=== PATIENT | male | born 1930 | race Caucasian/White ===

== ENCOUNTER 2018-09-24 09:09 | Observation (INO) ==
[2018-09-24 10:19] LABS: Basophils % 0.5 %; Eosinophils # 0.1 K/mcL (0.0-0.6); Eosinophils % 2.8 %; Hematocrit 41.4 % (37.5-50.1); Hemoglobin 13.1 g/dL (12.9-16.9); Immature Granulocytes % 0.9 % (0-4); Lymphocytes # 0.6 K/mcL (0.6-4.6); Mean Corpuscular HGB Conc 31.6 g/dL (31.6-35.5); Mean Corpuscular Hemoglobin 30.7 pg (28.0-33.3); Mean Platelet Volume 10.4 fL (9.4-12.4); Monocytes # 0.4 K/mcL (0.0-1.3); Monocytes % 8.4 %; Neutrophils # 3.1 K/mcL (1.6-8.9); Platelet Count 106 K/mcL (140-400); Red Blood Count 4.27 M/mcL (4.19-5.50); Red Cell Distribution Width 13.4 % (11.5-14.5); Segmented Neutrophils % 73.4 %; White Blood Count 4.3 K/mcL (4.3-11.1)
[2018-09-24 10:38] LABS: BUN/Creatinine Ratio 24 (6-26); Blood Urea Nitrogen 20 mg/dL (8-23); Calcium 9.4 mg/dL (8.6-10.3); Carbon Dioxide 30 mEq/L (23-29); Chloride 99 mEq/L (98-107); Glucose 97 mg/dL (70-105); Lipase 40 Units/L (11-82); Magnesium 2.3 mg/dL (1.6-2.6); Osmolality,Calculated 281 (280-300); Potassium 4.2 mEq/L (3.5-5.1); Sodium 134 mEq/L (136-145); eGFR For African Americans > 60 (> 60); eGFR For Non-African Americans > 60 (> 60)
[2018-09-24 10:40] LABS: Albumin 3.8 g/dL (3.5-5.7); Albumin/Globulin Ratio 1.4 (1.1-2.2); Bilirubin,Direct 0.2 mg/dL (0.0-0.2); Bilirubin,Indirect 0.5 mg/dL (0.0-1.2); Bilirubin,Total 0.7 mg/dL (0.3-1.0); Globulin 2.8 g/dL (2.4-3.5); Total Protein 6.6 g/dL (6.4-8.9); Troponin I 0.03 ng/mL (< 0.04)
[2018-09-24 10:54] LABS: Thyroid Stimulating Hormone 3.901 mcIU/mL (0.340-5.600)
[2018-09-24 11:56] LABS: Bilirubin,Urine Negative (Negative); Blood,Urine Negative (Negative); Clarity,Urine Clear (Clear); Color,Urine Yellow (Yellow); Glucose,Urine (UA) Normal (Normal); Ketones,Urine Negative (Negative); Leukocyte Esterase,Urine Negative (Negative); Nitrite,Urine Negative (Negative); PH,Urine 6.5 pH Units (5.0-8.0); Protein,Urine Negative (Neg-Trace); Specific Gravity,Urine 1.019 (1.010-1.025); Urobilinogen,Urine Normal (Normal)
[2018-09-24] MEDS ORDERED: Naloxone 0.4 MG/ML INJ IVP PRN (14:00)
[2018-09-24] MEDS ORDERED: Ondansetron ODT 4 MG TAB.RAPDIS SL PRN (14:00)
[2018-09-24] MEDS ORDERED: MOM Conc 10 ML UD.LIQ PO PRN (14:00)
[2018-09-24 15:17] LABS: VBG HCO3 30 mEq/L (21-27); VBG PCO2 63 mmHg (41-51); VBG PH 7.29 pH Units (7.32-7.42); VBG PO2 30 mmHg (25-50)
[2018-09-24] MEDS: Azithromycin 500 MG in D5% in Water 250 ML IVPB SCH (16:43)
[2018-09-24] MEDS: cefTRIAXone 1,000 MG in Water for inj. (sterile) 10 ML IVP SCH (18:03)
[2018-09-24] MEDS: Furosemide 40 MG TABLET PO SCH (18:03)
[2018-09-24] MEDS: Budesonide/Formoterol 80/4.5 1 PUFF INH IH SCH (19:55)
[2018-09-24] MEDS: Mirtazapine 15 MG TABLET PO SCH (20:19)
[2018-09-24] MEDS: *HR* LORazepam 0.5 MG TABLET PO SCH (20:19)
[2018-09-24] MEDS: Sennosides 8.6 MG TABLET PO SCH (20:20)
[2018-09-24] MEDS ORDERED: IPRATROPIUM BROMIDE NS SCH (21:00)
[2018-09-25 01:49] LABS: Amphetamine Screen,Urine Negative ng/mL (Cutoff=1000); Barbiturate Screen,Urine Negative ng/mL (Cutoff=200); Benzodiazepines Screen,Urine Negative ng/mL (Cutoff=200); Cannabinoid Screen,Urine Negative ng/mL (Cutoff = 50); Cocaine Screen,Urine Negative ng/mL (Cutoff= 300); Opiate Screen,Urine Negative ng/mL (Cutoff=300); Phencyclidine Screen,Urine Negative ng/mL (Cutoff=25)
[2018-09-25 05:03] LABS: Basophils % 0.2 %; Eosinophils # 0.1 K/mcL (0.0-0.6); Eosinophils % 2.5 %; Hematocrit 36.5 % (37.5-50.1); Immature Granulocytes % 0.6 % (0-4); Lymphocytes # 0.6 K/mcL (0.6-4.6); Lymphocytes % 10.8 %; Mean Corpuscular HGB Conc 32.9 g/dL (31.6-35.5); Mean Corpuscular Hemoglobin 31.1 pg (28.0-33.3); Mean Corpuscular Volume 94.6 fL (83.0-100.0); Mean Platelet Volume 10.3 fL (9.4-12.4); Monocytes # 0.3 K/mcL (0.0-1.3); Monocytes % 6.4 %; Neutrophils # 4.1 K/mcL (1.6-8.9); Platelet Count 112 K/mcL (140-400); Red Blood Count 3.86 M/mcL (4.19-5.50); Red Cell Distribution Width 13.2 % (11.5-14.5); Segmented Neutrophils % 79.5 %; White Blood Count 5.2 K/mcL (4.3-11.1)
[2018-09-25 05:08] LABS: VBG HCO3 29 mEq/L (21-27); VBG PCO2 41 mmHg (41-51); VBG PH 7.46 pH Units (7.32-7.42); VBG PO2 145 mmHg (25-50)
[2018-09-25 05:30] LABS: BUN/Creatinine Ratio 22 (6-26); Blood Urea Nitrogen 15 mg/dL (8-23); Calcium 8.8 mg/dL (8.6-10.3); Carbon Dioxide 29 mEq/L (23-29); Chloride 104 mEq/L (98-107); Glucose 86 mg/dL (70-105); Osmolality,Calculated 284 (280-300); Potassium 4.1 mEq/L (3.5-5.1); Sodium 137 mEq/L (136-145); eGFR For African Americans > 60 (> 60); eGFR For Non-African Americans > 60 (> 60)
[2018-09-25] MEDS: Budesonide/Formoterol 80/4.5 1 PUFF INH IH SCH ×2 (07:25→19:54)
[2018-09-25] MEDS: cefTRIAXone 1,000 MG in Water for inj. (sterile) 10 ML IVP SCH (08:46)
[2018-09-25] MEDS: *HR* LORazepam 0.5 MG TABLET PO SCH ×2 (08:46→20:55)
[2018-09-25] MEDS: Aspirin 81 MG TAB.CHEW PO SCH (08:46)
[2018-09-25] MEDS: Loratadine 10 MG TABLET PO SCH (08:46)
[2018-09-25] MEDS: Furosemide 40 MG TABLET PO SCH ×2 (08:46→17:15)
[2018-09-25] MEDS: Sennosides 8.6 MG TABLET PO SCH ×2 (08:46→20:55)
[2018-09-25] MEDS: Fluticasone Propionate Nasal 50 MCG/SPRAY BOTTLE NS SCH (09:27)
[2018-09-25 16:43] LABS: ABG Base Excess 5 mEq/L (-2 to 3); ABG HCO3 30 mEq/L (21-27); ABG Oxygen Saturation 96 % (95-98); ABG PCO2 46 mmHg (35-45); ABG PH 7.43 pH Units (7.32-7.45); ABG PO2 79 mmHg (85-104); ABG TCO2 32 mEq/L (20-26)
[2018-09-25] MEDS: Azithromycin 500 MG in D5% in Water 250 ML IVPB SCH (17:15)
[2018-09-25] MEDS: Ampicillin/Sulbactam 1,500 MG in 0.9 % Sodium Chloride Mini Bag 100 ML IVPB SCH (17:15)
[2018-09-25] MEDS: Mirtazapine 15 MG TABLET PO SCH (20:55)
[2018-09-26] MEDS: Ampicillin/Sulbactam 1,500 MG in 0.9 % Sodium Chloride Mini Bag 100 ML IVPB SCH ×4 (00:01→18:43)
[2018-09-26] MEDS: Budesonide/Formoterol 80/4.5 1 PUFF INH IH SCH ×2 (07:54→20:24)
[2018-09-26] MEDS: Furosemide 40 MG TABLET PO SCH ×2 (08:25→17:07)
[2018-09-26] MEDS: Loratadine 10 MG TABLET PO SCH (08:25)
[2018-09-26] MEDS: Aspirin 81 MG TAB.CHEW PO SCH (08:25)
[2018-09-26] MEDS: *HR* LORazepam 0.5 MG TABLET PO SCH ×2 (08:26→19:59)
[2018-09-26] MEDS: Sennosides 8.6 MG TABLET PO SCH ×2 (08:26→19:59)
[2018-09-26] MEDS: Fluticasone Propionate Nasal 50 MCG/SPRAY BOTTLE NS SCH (08:26)
[2018-09-26] MEDS: Azithromycin 500 MG in D5% in Water 250 ML IVPB SCH (17:07)
[2018-09-26] MEDS: Mirtazapine 15 MG TABLET PO SCH (19:59)
[2018-09-27] MEDS: Ampicillin/Sulbactam 1,500 MG in 0.9 % Sodium Chloride Mini Bag 100 ML IVPB SCH ×2 (00:09→06:02)
[2018-09-27 04:20] LABS: Hematocrit 38.9 % (37.5-50.1); Hemoglobin 12.7 g/dL (12.9-16.9); Mean Corpuscular HGB Conc 32.6 g/dL (31.6-35.5); Mean Corpuscular Hemoglobin 30.8 pg (28.0-33.3); Mean Corpuscular Volume 94.4 fL (83.0-100.0); Mean Platelet Volume 10.7 fL (9.4-12.4); Platelet Count 123 K/mcL (140-400); Red Blood Count 4.12 M/mcL (4.19-5.50); Red Cell Distribution Width 13.2 % (11.5-14.5); White Blood Count 5.4 K/mcL (4.3-11.1)
[2018-09-27 04:39] LABS: BUN/Creatinine Ratio 28 (6-26); Blood Urea Nitrogen 22 mg/dL (8-23); Carbon Dioxide 30 mEq/L (23-29); Chloride 100 mEq/L (98-107); Glucose 91 mg/dL (70-105); Osmolality,Calculated 287 (280-300); Sodium 137 mEq/L (136-145); eGFR For African Americans > 60 (> 60); eGFR For Non-African Americans > 60 (> 60)
[2018-09-27] MEDS ORDERED: *HR* LORazepam 0.5 MG TABLET PO PRN (07:24)
[2018-09-27] MEDS: Budesonide/Formoterol 80/4.5 1 PUFF INH IH SCH ×2 (07:46→20:19)
[2018-09-27] MEDS: Aspirin 81 MG TAB.CHEW PO SCH (08:28)
[2018-09-27] MEDS: Sennosides 8.6 MG TABLET PO SCH ×2 (08:29→21:36)
[2018-09-27] MEDS: Furosemide 40 MG TABLET PO SCH ×2 (08:29→17:42)
[2018-09-27] MEDS: Loratadine 10 MG TABLET PO SCH (08:29)
[2018-09-27] MEDS: Fluticasone Propionate Nasal 50 MCG/SPRAY BOTTLE NS SCH (08:35)
[2018-09-27] MEDS ORDERED: cefTRIAXone 1,000 MG in Water for inj. (sterile) 10 ML IVP SCH (09:00)
[2018-09-27 10:04] LABS: ABG Base Excess 6 mEq/L (-2 to 3); ABG HCO3 32 mEq/L (21-27); ABG Oxygen Saturation 97 % (95-98); ABG PCO2 46 mmHg (35-45); ABG PH 7.44 pH Units (7.32-7.45); ABG PO2 86 mmHg (85-104); ABG TCO2 33 mEq/L (20-26)
[2018-09-27] MEDS: Mirtazapine 15 MG TABLET PO SCH (21:30)
[2018-09-28 06:42] LABS: Hematocrit 39.9 % (37.5-50.1); Hemoglobin 12.9 g/dL (12.9-16.9); Mean Corpuscular HGB Conc 32.3 g/dL (31.6-35.5); Mean Corpuscular Hemoglobin 30.9 pg (28.0-33.3); Mean Corpuscular Volume 95.7 fL (83.0-100.0); Mean Platelet Volume 10.5 fL (9.4-12.4); Platelet Count 127 K/mcL (140-400); Red Blood Count 4.17 M/mcL (4.19-5.50); Red Cell Distribution Width 13.1 % (11.5-14.5); White Blood Count 4.9 K/mcL (4.3-11.1)
[2018-09-28 07:06] LABS: Alanine Aminotransferase 18 Units/L (7-52); Albumin 3.5 g/dL (3.5-5.7); Albumin/Globulin Ratio 1.3 (1.1-2.2); Alkaline Phosphatase 160 Units/L (34-104); Aspartate Amino Transferase 22 Units/L (13-39); BUN/Creatinine Ratio 26 (6-26); Bilirubin,Total 0.8 mg/dL (0.3-1.0); Blood Urea Nitrogen 20 mg/dL (8-23); Calcium 9.4 mg/dL (8.6-10.3); Carbon Dioxide 32 mEq/L (23-29); Chloride 99 mEq/L (98-107); Globulin 2.7 g/dL (2.4-3.5); Glucose 92 mg/dL (70-105); Magnesium 2.3 mg/dL (1.6-2.6); Osmolality,Calculated 290 (280-300); Phosphorous 3.6 mg/dL (2.7-4.5); Potassium 3.6 mEq/L (3.5-5.1); Sodium 139 mEq/L (136-145); Total Protein 6.2 g/dL (6.4-8.9); eGFR For African Americans > 60 (> 60); eGFR For Non-African Americans > 60 (> 60)
[2018-09-28 07:30] VITALS: BP 161/73
[2018-09-28] MEDS: Budesonide/Formoterol 80/4.5 1 PUFF INH IH SCH (07:59)
[2018-09-28] MEDS: Sennosides 8.6 MG TABLET PO SCH (09:17)
[2018-09-28] MEDS: Furosemide 40 MG TABLET PO SCH (09:18)
[2018-09-28] MEDS: Loratadine 10 MG TABLET PO SCH (09:18)
[2018-09-28] MEDS: Aspirin 81 MG TAB.CHEW PO SCH (09:18)
[2018-09-28] MEDS: Fluticasone Propionate Nasal 50 MCG/SPRAY BOTTLE NS SCH (09:20)
[2018-09-28 09:45] LABS: Serine Protease-3 Antibody 0 AU/mL (0-19)
[2018-09-28 09:46] LABS: ANA IgG by ELISA NONE DETECTED (None Detected)
== END 2018-09-28 12:21 | disposition home or self-care (01) ==
LOC: 3ANU 09:09 → EMEROOARM 09:09 → SUATTDRO 13:07 → 3ANU 14:39 → 3NENU 09-25 15:22
PROVIDERS: ADMIT Internal Medicine; ATTEND Internal Medicine

== ENCOUNTER 2021-01-04 18:41 | Inpatient (IN) ==
[2021-01-04] MEDS ORDERED: Ondansetron 4 MG/2 ML VIAL IVP ONE (20:18)
[2021-01-04] MEDS ORDERED: 0.9 % Sodium Chloride 1,000 ML IV ONE (20:21)
[2021-01-04 20:52] LABS: Basophils % 0.2 %; Eosinophils % 0.3 %; Immature Granulocytes % 0.3 % (0-4); Mean Corpuscular Volume 89.7 fL (83.0-100.0)
[2021-01-04 20:54] LABS: Hematocrit 43.4 % (37.5-50.1); Hemoglobin 14.1 g/dL (12.9-16.9); Immature Platelets 6.5 % (1.1-6.1); Lymphocytes # 0.4 K/mcL (0.6-4.6); Lymphocytes % 6.3 %; Mean Corpuscular HGB Conc 32.5 g/dL (31.6-35.5); Mean Corpuscular Hemoglobin 29.1 pg (28.0-33.3); Mean Platelet Volume 11.1 fL (9.4-12.4); Monocytes # 0.5 K/mcL (0.0-1.3); Monocytes % 7.7 %; Neutrophils # 5.5 K/mcL (1.6-8.9); Platelet Count 108 K/mcL (140-400); Red Blood Count 4.84 M/mcL (4.19-5.50); Red Cell Distribution Width 14.3 % (11.5-14.5); Segmented Neutrophils % 85.2 %; White Blood Count 6.5 K/mcL (4.3-11.1)
[2021-01-04 21:00] LABS: INR 2.7; Prothrombin Time 30.1 Seconds (9.4-12.1)
[2021-01-04 21:13] LABS: Alanine Aminotransferase 25 Units/L (7-52); Albumin 3.6 g/dL (3.5-5.7); Albumin/Globulin Ratio 1.2 (1.1-2.2); Alkaline Phosphatase 203 Units/L (34-104); Amylase 29 Units/L (29-103); Aspartate Amino Transferase 42 Units/L (13-39); BUN/Creatinine Ratio 22 (6-26); Bilirubin,Direct 0.4 mg/dL (0.0-0.2); Bilirubin,Total 1.4 mg/dL (0.3-1.0); Blood Urea Nitrogen 20 mg/dL (8-23); Calcium 9.4 mg/dL (8.6-10.3); Carbon Dioxide 35 mEq/L (23-29); Chloride 93 mEq/L (98-107); Globulin 2.9 g/dL (2.4-3.5); Glucose 101 mg/dL (70-105); Lipase 29 Units/L (11-82); Osmolality,Calculated 279 (280-300); Potassium 4.2 mEq/L (3.5-5.1); Sodium 133 mEq/L (136-145); Total Protein 6.5 g/dL (6.4-8.9); eGFR For African Americans > 60 (> 60); eGFR For Non-African Americans > 60 (> 60)
[2021-01-04] MEDS ORDERED: Ondansetron 4 MG/2 ML VIAL IVP PRN (22:55)
[2021-01-04] MEDS ORDERED: Naloxone 0.4 MG/ML INJ IVP PRN (22:55)
[2021-01-04] MEDS ORDERED: Isovue-370 500 ML BOTTLE IVP ONE (22:58)
[2021-01-05] MEDS ORDERED: Ipratropium/Albuterol Neb 3 ML IH PRN
[2021-01-05 00:24] LABS: Adenovirus Not Detected (Not Detect); Bordetella Pertussis Not Detected (Not Detect); Chlamydophila pneumoniae Not Detected (Not Detect); Coronavirus 229E Not Detected (Not Detect); Coronavirus HKU1 Not Detected (Not Detect); Coronavirus NL63 Not Detected (Not Detect); Coronavirus OC43 Not Detected (Not Detect); Human Metapneumovirus Not Detected (Not Detect); Human Rhinovirus/Enterovirus Not Detected (Not Detect); Influenza A Subtype 2009 H1 Not Detected (Not Detect); Influenza B Not Detected (Not Detect); Mycoplasma pneumoniae Not Detected (Not Detect); Parainfluenza Virus 1 Not Detected (Not Detect); Parainfluenza Virus 2 Not Detected (Not Detect); Parainfluenza Virus 3 Not Detected (Not Detect); Parainfluenza Virus 4 Not Detected (Not Detect); Respiratory Syncytial Virus Not Detected (Not Detect); SARS-CoV-2 Not Detected (Not Detect)
[2021-01-05] MEDS ORDERED: Furosemide 40 MG/4 ML VIAL IVP ONE (01:48)
[2021-01-05] MEDS: Melatonin 3 MG TABLET PO SCH ×2 (02:34→21:28)
[2021-01-05 03:26] LABS: INR 2.2; Prothrombin Time 24.7 Seconds (9.4-12.1)
[2021-01-05 03:27] LABS: Basophils % 0.1 %; Eosinophils % 0.1 %; Hematocrit 44.9 % (37.5-50.1); Hemoglobin 14.5 g/dL (12.9-16.9); Immature Granulocytes % 0.6 % (0-4); Immature Platelets 6.2 % (1.1-6.1); Lymphocytes # 0.4 K/mcL (0.6-4.6); Lymphocytes % 5.9 %; Mean Corpuscular HGB Conc 32.3 g/dL (31.6-35.5); Mean Corpuscular Hemoglobin 29.1 pg (28.0-33.3); Mean Platelet Volume 11.3 fL (9.4-12.4); Monocytes # 0.3 K/mcL (0.0-1.3); Monocytes % 4.6 %; Red Blood Count 4.99 M/mcL (4.19-5.50); Red Cell Distribution Width 14.5 % (11.5-14.5); Segmented Neutrophils % 88.7 %; White Blood Count 6.8 K/mcL (4.3-11.1)
[2021-01-05 03:45] LABS: BUN/Creatinine Ratio 22 (6-26); Blood Urea Nitrogen 17 mg/dL (8-23); Carbon Dioxide 27 mEq/L (23-29); Chloride 96 mEq/L (98-107); Glucose 117 mg/dL (70-105); Osmolality,Calculated 277 (280-300); Potassium 3.9 mEq/L (3.5-5.1); Sodium 132 mEq/L (136-145); eGFR For African Americans > 60 (> 60); eGFR For Non-African Americans > 60 (> 60)
[2021-01-05 03:55] LABS: Platelet Count 94 K/mcL (140-400)
[2021-01-05 03:56] LABS: Platelet Estimate Decreased (Normal)
[2021-01-05 05:00] LABS: Thyroid Stimulating Hormone 3.438 mcIU/mL (0.340-5.600)
[2021-01-05] MEDS: Aspirin 81 MG TAB.CHEW PO SCH (08:25)
[2021-01-05] MEDS ORDERED: Azithromycin 500 MG in 0.9 % Sodium Chloride 250 ML IVPB SCH (09:00)
[2021-01-05] MEDS ORDERED: cefTRIAXone 1,000 MG in 0.9 % Sodium Chloride Mini Bag 100 ML IVPB SCH (09:00)
[2021-01-05] MEDS: Furosemide 40 MG/4 ML VIAL IVP SCH (13:46)
[2021-01-05 13:55] LABS: Bilirubin,Urine Negative (Negative); Blood,Urine Moderate (Negative); Clarity,Urine Clear (Clear); Color,Urine Yellow (Yellow); Glucose,Urine (UA) Normal (Normal); Hyaline Casts,Urine Few per lpf (None Seen); Ketones,Urine Negative (Negative); Leukocyte Esterase,Urine Negative (Negative); Mucus,Urine Few per lpf (None-Few); Nitrite,Urine Negative (Negative); Protein,Urine Trace mg/dL (Neg-Trace); RBC,Urine 15-30 per hpf (0-3); Specific Gravity,Urine 1.028 (1.010-1.025); Urobilinogen,Urine Normal (Normal)
[2021-01-05] MEDS ORDERED: *HR* Heparin 5,000 UNIT/ML VIAL IVP PRN ×2 (16:08)
[2021-01-05] MEDS ORDERED: *HR* Heparin 5,000 UNIT/ML VIAL IVP ONE (16:08)
[2021-01-05] MEDS ORDERED: Heparin 25,000UNIT/250ML 1/2NS 25,000 UNIT/250 ML IV.SOLN IVC SCH (16:15)
[2021-01-05 17:50] LABS: Hemoglobin 14.1 g/dL (12.9-16.9); Mean Platelet Volume 10.9 fL (9.4-12.4); Red Cell Distribution Width 14.4 % (11.5-14.5)
[2021-01-05 17:51] LABS: Immature Platelets 5.3 % (1.1-6.1); Mean Corpuscular Hemoglobin 28.8 pg (28.0-33.3); Red Blood Count 4.89 M/mcL (4.19-5.50); White Blood Count 7.4 K/mcL (4.3-11.1)
[2021-01-05 18:01] LABS: INR 2.1; Prothrombin Time 22.9 Seconds (9.4-12.1)
[2021-01-05 18:25] LABS: Heparin anti-factor XA UFH > 2.00 IU/mL (0.30-0.70)
[2021-01-05 18:56] LABS: Activated Partial Thrombo Time 38.4 Seconds (26.0-36.0)
[2021-01-06 01:22] LABS: BUN/Creatinine Ratio 24 (6-26); Blood Urea Nitrogen 22 mg/dL (8-23); Calcium 9.1 mg/dL (8.6-10.3); Carbon Dioxide 27 mEq/L (23-29); Chloride 98 mEq/L (98-107); Glucose 107 mg/dL (70-105); Osmolality,Calculated 288 (280-300); Potassium 3.9 mEq/L (3.5-5.1); Sodium 137 mEq/L (136-145); eGFR For African Americans > 60 (> 60); eGFR For Non-African Americans > 60 (> 60)
[2021-01-06 02:42] LABS: Activated Partial Thrombo Time > 360.0 Seconds (26.0-36.0)
[2021-01-06 04:09] LABS: Basophils % 0.3 %; Eosinophils % 0.1 %; Hematocrit 42.8 % (37.5-50.1); Hemoglobin 13.7 g/dL (12.9-16.9); Immature Granulocytes % 0.5 % (0-4); Lymphocytes # 0.4 K/mcL (0.6-4.6); Lymphocytes % 5.7 %; Mean Corpuscular Hemoglobin 29.2 pg (28.0-33.3); Mean Corpuscular Volume 91.3 fL (83.0-100.0); Mean Platelet Volume 11.1 fL (9.4-12.4); Monocytes # 0.5 K/mcL (0.0-1.3); Monocytes % 7.3 %; Neutrophils # 6.4 K/mcL (1.6-8.9); Platelet Count 120 K/mcL (140-400); Red Blood Count 4.69 M/mcL (4.19-5.50); Red Cell Distribution Width 14.5 % (11.5-14.5); Segmented Neutrophils % 86.1 %; White Blood Count 7.4 K/mcL (4.3-11.1)
[2021-01-06 04:32] LABS: INR 2.2; Prothrombin Time 24.9 Seconds (9.4-12.1)
[2021-01-06] MEDS: Aspirin 81 MG TAB.CHEW PO SCH (08:35)
[2021-01-06] MEDS: Furosemide 40 MG/4 ML VIAL IVP SCH (08:36)
[2021-01-06] MEDS: Melatonin 3 MG TABLET PO SCH (19:48)
[2021-01-07 03:21] LABS: Hematocrit 37.8 % (37.5-50.1); Hemoglobin 12.1 g/dL (12.9-16.9)
[2021-01-07] MEDS: Furosemide 40 MG/4 ML VIAL IVP SCH (07:37)
[2021-01-07] MEDS: Aspirin 81 MG TAB.CHEW PO SCH (07:37)
[2021-01-07 15:29] VITALS: BP 118/79; PULSE 88; TEMP 97.4; O2SAT 97
== END 2021-01-07 17:30 | disposition home health service (06) | DRG 280 ==
LOC: EMEROOARM 18:41 → 3NENU 01-05 00:37 → SUATTDRO 01-05 00:37 → 3NENU 01-05 01:08
PROVIDERS: ADMIT Student in an Organized Health Care Education/Training Program; ATTEND Family Medicine

== ENCOUNTER 2021-05-03 07:24 | Inpatient (IN) ==
[2021-05-03] MEDS ORDERED: Isovue-370 500 ML BOTTLE IVP ONE (07:35)
[2021-05-03 07:55] LABS: Hematocrit 40.3 % (37.5-50.1); Red Cell Distribution Width 14.9 % (11.5-14.5)
[2021-05-03 07:56] LABS: Immature Platelets 5.9 % (1.1-6.1); Mean Corpuscular HGB Conc 32.3 g/dL (31.6-35.5); Mean Corpuscular Hemoglobin 30.2 pg (28.0-33.3); Mean Corpuscular Volume 93.5 fL (83.0-100.0); Mean Platelet Volume 10.3 fL (9.4-12.4); Red Blood Count 4.31 M/mcL (4.19-5.50)
[2021-05-03 08:00] LABS: INR 1.2; Prothrombin Time 13.7 Seconds (9.4-12.1)
[2021-05-03 08:03] LABS: Activated Partial Thrombo Time 35.9 Seconds (26.0-36.0)
[2021-05-03] MEDS ORDERED: Furosemide 40 MG/4 ML VIAL IVP ONE (08:51)
[2021-05-03 09:19] LABS: VBG HCO3 35 mEq/L (21-27); VBG PCO2 70 mmHg (41-51); VBG PH 7.31 pH Units (7.32-7.42); VBG PO2 97 mmHg (25-50)
[2021-05-03] MEDS ORDERED: Ondansetron 4 MG/2 ML VIAL IVP PRN (09:25)
[2021-05-03] MEDS ORDERED: Naloxone 0.4 MG/ML INJ IVP PRN (09:25)
[2021-05-03 10:09] LABS: Alanine Aminotransferase 17 Units/L (7-52); Albumin 3.4 g/dL (3.5-5.7); Albumin/Globulin Ratio 1.1 (1.1-2.2); Alkaline Phosphatase 175 Units/L (34-104); Aspartate Amino Transferase 30 Units/L (13-39); BUN/Creatinine Ratio 19 (6-26); Bilirubin,Direct 0.3 mg/dL (0.0-0.2); Bilirubin,Indirect 0.6 mg/dL (0.0-1.0); Bilirubin,Total 0.9 mg/dL (0.3-1.0); Blood Urea Nitrogen 16 mg/dL (8-23); Calcium 9.2 mg/dL (8.6-10.3); Carbon Dioxide 34 mEq/L (23-29); Chloride 90 mEq/L (98-107); Creatine Kinase 12 Units/L (30-223); Ethanol < 10 mg/dL (Less than 10); Globulin 3.2 g/dL (2.4-3.5); Glucose 86 mg/dL (70-105); Osmolality,Calculated 274 (280-300); Potassium 4.2 mEq/L (3.5-5.1); Sodium 132 mEq/L (136-145); Total Protein 6.6 g/dL (6.4-8.9); Troponin I 0.03 ng/mL (< 0.04); eGFR For African Americans > 60 (> 60); eGFR For Non-African Americans > 60 (> 60)
[2021-05-03 10:19] LABS: ABG Base Excess 10 mEq/L (-2 to 3); ABG HCO3 39 mEq/L (21-27); ABG Oxygen Saturation 98 % (95-98); ABG PCO2 70 mmHg (35-45); ABG PH 7.35 pH Units (7.32-7.45); ABG PO2 123 mmHg (85-104); ABG TCO2 41 mEq/L (20-26); Blood Gas Modality NIV
[2021-05-03] MEDS: *HR* Heparin 5,000 UNIT/ML VIAL SQ SCH (16:56)
[2021-05-03 16:58] LABS: RBC,Pleural Fluid 15000 RBC/mcL
[2021-05-03 17:13] LABS: Total Protein,Pleural Fluid 2.3 g/dL
[2021-05-03 17:29] LABS: Bilirubin,Urine Negative (Negative); Blood,Urine Trace (Negative); Clarity,Urine Clear (Clear); Color,Urine Light-Yellow (Yellow); Glucose,Urine (UA) Normal (Normal); Hyaline Casts,Urine Few per lpf (None Seen); Ketones,Urine Negative (Negative); Leukocyte Esterase,Urine Negative (Negative); Mucus,Urine Few per lpf (None-Few); Nitrite,Urine Negative (Negative); PH,Urine 6.5 pH Units (5.0-8.0); Protein,Urine Negative (Neg-Trace); Specific Gravity,Urine 1.019 (1.010-1.025); Urobilinogen,Urine Normal (Normal); WBC,Urine 0-3 per hpf (0-3)
[2021-05-03 17:37] LABS: Amphetamine Screen,Urine Negative ng/mL (Cutoff=1000); Barbiturate Screen,Urine Negative ng/mL (Cutoff=200); Benzodiazepines Screen,Urine Negative ng/mL (Cutoff=200); Cannabinoid Screen,Urine Negative ng/mL (Cutoff = 50); Cocaine Screen,Urine Negative ng/mL (Cutoff= 300); Opiate Screen,Urine Negative ng/mL (Cutoff=300); Phencyclidine Screen,Urine Negative ng/mL (Cutoff=25)
[2021-05-03 17:56] LABS: Appearance of Pleural Fl Cloudy (Clear)
[2021-05-03 17:58] LABS: Basophils,Pleural Fluid 0 %; Eosinophils,Pleural Fluid 0 %
[2021-05-03] MEDS: Furosemide 40 MG/4 ML VIAL IVP SCH (20:59)
[2021-05-03] MEDS: Mirtazapine 15 MG TABLET PO SCH (21:00)
[2021-05-03] MEDS: QUEtiapine Fumarate 25 MG TABLET PO SCH (21:00)
[2021-05-03] MEDS: Budesonide/Formoterol 80/4.5 1 PUFF INH IH SCH (22:22)
[2021-05-03] MEDS: Albuterol 2.5 MG/3 ML NEBULIZER IH SCH (22:23)
[2021-05-04 01:49] LABS: Basophils % 0.2 %; Hematocrit 41.2 % (37.5-50.1); Immature Granulocytes % 0.6 % (0-4); Red Cell Distribution Width 14.6 % (11.5-14.5)
[2021-05-04 01:51] LABS: Eosinophils % 0.8 %; Hemoglobin 13.1 g/dL (12.9-16.9); Immature Platelets 5.4 % (1.1-6.1); Lymphocytes # 0.4 K/mcL (0.6-4.6); Lymphocytes % 7.1 %; Mean Corpuscular HGB Conc 31.8 g/dL (31.6-35.5); Mean Corpuscular Hemoglobin 29.8 pg (28.0-33.3); Mean Corpuscular Volume 93.6 fL (83.0-100.0); Mean Platelet Volume 10.9 fL (9.4-12.4); Monocytes # 0.4 K/mcL (0.0-1.3); Monocytes % 7.7 %; Neutrophils # 4.2 K/mcL (1.6-8.9); Platelet Count 91 K/mcL (140-400); Segmented Neutrophils % 83.6 %
[2021-05-04 02:04] LABS: BUN/Creatinine Ratio 21 (6-26); Blood Urea Nitrogen 16 mg/dL (8-23); Calcium 9.1 mg/dL (8.6-10.3); Carbon Dioxide 38 mEq/L (23-29); Chloride 91 mEq/L (98-107); Glucose 107 mg/dL (70-105); Osmolality,Calculated 276 (280-300); Sodium 132 mEq/L (136-145); eGFR For African Americans > 60 (> 60); eGFR For Non-African Americans > 60 (> 60)
[2021-05-04] MEDS: *HR* Heparin 5,000 UNIT/ML VIAL SQ SCH ×2 (05:23→18:03)
[2021-05-04] MEDS: Budesonide/Formoterol 80/4.5 1 PUFF INH IH SCH ×2 (07:56→19:39)
[2021-05-04] MEDS: Albuterol 2.5 MG/3 ML NEBULIZER IH SCH ×2 (07:56→19:39)
[2021-05-04] MEDS: Furosemide 40 MG/4 ML VIAL IVP SCH ×2 (09:10→19:52)
[2021-05-04] MEDS: Metoprolol XL (24 HR) Succ 25 MG TAB.ER.24H PO SCH (09:10)
[2021-05-04] MEDS: Mirtazapine 15 MG TABLET PO SCH (19:52)
[2021-05-04] MEDS: *HR* LORazepam 0.5 MG TABLET PO PRN (19:52)
[2021-05-04] MEDS: QUEtiapine Fumarate 25 MG TABLET PO SCH (19:53)
[2021-05-05] MEDS: *HR* Heparin 5,000 UNIT/ML VIAL SQ SCH ×2 (05:03→18:39)
[2021-05-05 05:06] LABS: VBG HCO3 36 mEq/L (21-27); VBG PCO2 58 mmHg (41-51); VBG PO2 84 mmHg (25-50)
[2021-05-05 05:27] LABS: BUN/Creatinine Ratio 23 (6-26); Blood Urea Nitrogen 18 mg/dL (8-23); Calcium 8.7 mg/dL (8.6-10.3); Carbon Dioxide 43 mEq/L (23-29); Chloride 90 mEq/L (98-107); Glucose 93 mg/dL (70-105); Osmolality,Calculated 280 (280-300); Potassium 3.5 mEq/L (3.5-5.1); Sodium 134 mEq/L (136-145); eGFR For African Americans > 60 (> 60); eGFR For Non-African Americans > 60 (> 60)
[2021-05-05] MEDS ORDERED: Ipratropium Neb 0.5 MG NEBULIZER IH PRN (10:42)
[2021-05-05] MEDS: Albuterol 2.5 MG/3 ML NEBULIZER IH SCH (10:44)
[2021-05-05] MEDS: Ipratropium Neb 0.5 MG NEBULIZER IH SCH ×2 (11:12→20:01)
[2021-05-05] MEDS: Budesonide/Formoterol 80/4.5 1 PUFF INH IH SCH ×2 (11:12→20:01)
[2021-05-05 16:48] LABS: Fluid Source for Albumin PLEURAL
[2021-05-05] MEDS: QUEtiapine Fumarate 25 MG TABLET PO SCH (20:13)
[2021-05-05] MEDS: *HR* LORazepam 0.5 MG TABLET PO PRN (20:13)
[2021-05-05] MEDS: Mirtazapine 15 MG TABLET PO SCH (20:13)
[2021-05-06 01:46] LABS: VBG HCO3 41 mEq/L (21-27); VBG PCO2 76 mmHg (41-51); VBG PH 7.34 pH Units (7.32-7.42); VBG PO2 53 mmHg (25-50)
[2021-05-06 01:59] LABS: BUN/Creatinine Ratio 29 (6-26); Blood Urea Nitrogen 22 mg/dL (8-23); Calcium 8.8 mg/dL (8.6-10.3); Carbon Dioxide 40 mEq/L (23-29); Chloride 90 mEq/L (98-107); Glucose 88 mg/dL (70-105); Osmolality,Calculated 279 (280-300); Sodium 133 mEq/L (136-145); eGFR For African Americans > 60 (> 60); eGFR For Non-African Americans > 60 (> 60)
[2021-05-06] MEDS: *HR* Heparin 5,000 UNIT/ML VIAL SQ SCH (04:59)
[2021-05-06] MEDS: Ipratropium Neb 0.5 MG NEBULIZER IH SCH (07:58)
[2021-05-06] MEDS: Budesonide/Formoterol 80/4.5 1 PUFF INH IH SCH (07:58)
[2021-05-06 08:08] VITALS: O2SAT 99
[2021-05-06] MEDS ORDERED: Furosemide 40 MG/4 ML VIAL IVP SCH (09:00)
[2021-05-06 11:35] VITALS: BP 101/72; PULSE 70; TEMP 97.7
[2021-05-06] MEDS: Metoprolol XL (24 HR) Succ 25 MG TAB.ER.24H PO SCH (11:40)
== END 2021-05-06 16:56 | disposition hospice, home (50) | DRG 291 ==
LOC: EMEROOARM 07:24 → 2ANU 07:24 → SUATTDRO 09:33 → 2ANU 10:30
PROVIDERS: ADMIT Internal Medicine; ATTEND Internal Medicine
PROC: ENDOAPI (2021-05-03 13:00)